=== PATIENT | female | born 1960 | race Caucasian/White ===

== ENCOUNTER → 2016-09-22 11:30 | Emergency (ER) | payer BC ==
[~2016-09-22 11:30] MED LIST: Dexamethasone IV* 4 MG/ML 1 ML (4 MG) IM ONE; Ketorolac INJ* 60 MG/2 ML VIAL IM ONE
[2016-09-22 14:38] VITALS: BP 0/0
== END | disposition left against medical advice (07) ==
LOC: ED 11:30
DX: M54.9 Dorsalgia, unspecified (principal); Z53.21 Procedure and treatment not carried out due to patient leaving prior to being seen by health care provider

== ENCOUNTER 2016-09-26 00:27 | Emergency (ER) | payer BC ==
[2016-09-26] MEDS ORDERED: methylPREDNISolone TAB* 4 MG PO ONE (01:51)
[2016-09-26] MEDS ORDERED: Morphine INJ* 4 MG/ML 1 ML SYRINGE IM ONE (01:51)
[2016-09-26] MEDS ORDERED: Diazepam TAB(*) 5 MG PO ONE (01:51)
--- NOTE | 2016-09-26 02:42 | ED ---
Back Pain - HPI Summary HPI Summary: 56F presents with acute on chronic back since 09/19. She was pulling a wagon and felt a pull in her thoracic region. She states she is taking her normal medication which includes norco and morbid without relief. She had an xray done which did not show anything acute. She states her pain starts in her thoracic back and moves to her lumbar and to her cervical. She states she can not sleep due to the pain. She denies any weakness. She admits to numbness on left side of chest wall. She denies any chest pain or SOB. She denies any loss of bowel or bladder. She denies any saddle anaesthesia. Her primary manages her pain. She saw then yesterday and then did nothing different. - History of Current Complaint Chief Complaint: EDBackInjuryPain Stated Complaint: BACK PAIN Time Seen by Provider: 09/26/16 01:21 Pain Intensity: 10 - Allergies/Home Medications Allergies/Adverse Reactions: Allergies Allergy/AdvReac Type Severity Reaction Status Date / Time Lactose Intolerance (GI) Allergy Unknown Verified 09/26/16 00:41 Reaction Details Soy Allergy Allergy Unknown Verified 09/26/16 00:41 Reaction Details GLUTEN Allergy CELIAC Uncoded 09/26/16 00:41 DISEASE PMH/Surg Hx/FS Hx/Imm Hx Endocrine/Hematology History: Denies: Hx Diabetes, Hx Thyroid Disease Cardiovascular History: Denies: Hx Hypertension Respiratory History: Denies: Hx Asthma, Hx Chronic Obstructive Pulmonary Disease (COPD) GI History: Denies: Hx Ulcer Musculoskeletal History: Reports: Hx Arthritis - NECK, RIGHT WRIST, Other Musculoskeletal History - THORACIC RADICULITIS/STENOSIS/SPONDO..? Sensory History: Reports: Hx Contacts or Glasses - READING GLASSES Denies: Hx Hearing Aid Opthamlomology History: Reports: Hx Contacts or Glasses - READING GLASSES - Cancer History Hx Chemotherapy: No Hx Radiation Therapy: No - Surgical History Surgery Procedure, Year, and Place: RIGHT wrist surgery Hx Anesthesia Reactions: No Infectious Disease History: No Infectious Disease History: Denies: Hx Hepatitis, Hx Human Immunodeficiency Virus (HIV), History Other Infectious Disease, Traveled Outside the [place] in Last 30 Days - Family History Known Family History: Positive: None - Social History Alcohol Use: Daily Alcohol Amount: WINE 2 GLASSES PER DAY Substance Use Type: Reports: None Smoking Status (MU): Current Every Day Smoker Amount Used/How Often: 3 PER DAY X 20 YEARS Have You Smoked in the Last Year: Yes Review of Systems Negative: Fever Negative: Chest Pain Negative: Shortness Of Breath Positive: Myalgia - back pain All Other Systems Reviewed And Are Negative: Yes Physical Exam Triage Information Reviewed: Yes Vital Signs On Initial Exam: Initial Vitals Temp Pulse Resp BP 98.1 F 71 20 142/86 09/26/16 00:35 09/26/16 00:35 09/26/16 00:35 09/26/16 00:35 Vital Signs Reviewed: Yes Appearance: Positive: Pain Distress Skin: Positive: Warm, Dry Head/Face: Positive: Normal Head/Face Inspection Eyes: Positive: Normal, Conjunctiva Clear Respiratory/Lung Sounds: Positive: Clear to Auscultation, Breath Sounds Present Cardiovascular: Positive: Normal, RRR Musculoskeletal: Positive: Limited @ - thoracic back, Other - tenderness across thoracic back, good strength in arms, good pulses Neurological: Positive: Reflexes Intact - biceps Diagnostics - Vital Signs Vital Signs Temp Pulse Resp BP Pulse Ox 09/26/16 02:27 66 16 151/91 97 09/26/16 02:00 18 09/26/16 00:48 98.1 F 71 20 142/86 100 09/26/16 00:35 98.1 F 71 20 142/86 - Laboratory Lab Statement: Any lab studies that have been ordered have been reviewed, and results considered in the medical decision making process. - CT thoracic CT Interpretation: No Acute Changes - IMPRESSION: No fracture of the thoracic spine is noted. Degenerative disc disease at T6-T7. Ventral osteophyte formation at T8-T9. CT Interpretation Completed By: Radiologist Back Pain Course/Dx - Course Course Of Treatment: 56F presents with acute on chronic back since 09/19. She was pulling a wagon and felt a pull in her thoracic region. She states she is taking her normal medication which includes norco and morbid without relief. She had an xray done which did not show anything acute. She states her pain starts in her thoracic back and moves to her lumbar and to her cervical. She states she can not sleep due to the pain. She denies any weakness. She admits to numbness on left side of chest wall. She denies any chest pain or SOB. She denies any loss of bowel or bladder. She denies any saddle anaesthesia. Her primary manages her pain. tender across thoracic back. gave morphine and valium and patient fell asleep. CT thoracic no acute changes. will add prednisone and robaxin and told to follow up with PCP for pain management. patient understands and agrees with plan. - Diagnoses Differential Diagnosis/HQI/PQRI: Positive: Herniated Disc, Strain, Sprain Provider Diagnoses: Back pain Discharge - Discharge Plan Condition: Good Disposition: HOME Prescriptions: Methocarbamol [Robaxin-750 MG TAB] 750 mg PO TID #15 tab Methylprednisolone [Medrol Dosepak 4 MG*] 4 mg PO .SEE KASSY INSTRUCTION #1 packet Patient Education Materials: Back Pain (ED) Referrals: Saravanan Gonzalez MD [Primary Care Provider] - Additional Instructions: Follow directions on package for Medrol pack Take muscle relaxers three times a day for 5 days Use ibuprofen or Tylenol for pain every 6 hours ice/heat area, move as much as possible Follow up with primary Return to ED if develop any new or worsening symptoms
[2016-09-26 03:09] VITALS: BP 127/73
--- NOTE | 2016-09-26 08:22 | RAD ---
Indication: Back pain. CT of the thoracic spine was obtained in the axial plane. Sagittal and coronal reconstructed images were obtained. Degenerative disc disease is noted at C6-C7. Otherwise the vertebral bodies appear normal in height and alignment. Mild disc space narrowing is noted at T2-T3, T3-T4, T4-T5, T5-T6. Ventral osteophyte formation is noted at T8-T9 and T7-T8. No fracture is noted. The spinal canal does not appear to be encroached upon. IMPRESSION: No fracture of the thoracic spine is noted. Degenerative disc disease at T6-T7. Ventral osteophyte formation at T8-T9.
== END 2016-09-26 03:20 | disposition home or self-care (01) ==
LOC: ED 00:27
DX: M54.9 Dorsalgia, unspecified (principal)
CPT/HCPCS: 72128; 96372; 99282; A9270-GY; J2270; J7509